=== PATIENT | male | born 1965 | race Caucasian/White ===

== ENCOUNTER 2017-01-09 10:48 | Inpatient (IN) | payer MEDICAID ==
[~2017-01-09] VITALS: Ht 177.8 cm; Wt 95.2 kg
[~2017-01-09 10:48] MED LIST: ACYC400T4 PO; ALLO300T PO; AMLO5TAB2 PO; AMOX1TAB64 PO; AZEL23SP NAS; CLON-364 PO; DOXY100C15 PO; FEBU40TA PO; FLUT16SP NAS; HYDR200T PO; HYDR50TA13 PO; INDO50CA PO; LISI-167 PO; METH-356 PO; METO50TA82 PO; MIRT30TA4 PO; OXYC10TA6 PO; PANT40TA5 PO; PRED1TAB PO; SERT50TA PO; SIMV20TA3 PO; TAMS-11 PO; ZOLP10TA5 PO
[2017-01-09] MEDS ORDERED: SODIUM CHLORIDE 0.9% 1,000 ML IV ONE ×2 (11:10→13:24)
[2017-01-09] MEDS ORDERED: MECLIZINE CHEWABLE 25 MG TAB PO ONE (11:30)
[2017-01-09] MEDS ORDERED: SODIUM CHLORIDE FLUSH 10ML SYR IVF ONE (11:30)
[2017-01-09] MEDS ORDERED: SODIUM CHLORIDE 0.9% 1,000ML IVBOLUS ONE (11:30)
[2017-01-09 12:31] LABS: BLOOD UREA NITROGEN 51 mg/dL (7-18)
[2017-01-09 12:36] LABS: ASPARTATE AMINO TRANSFERASE 16 U/L (15-37)
[2017-01-09 12:38] LABS: ACETAMINOPHEN < 2 mcg/mL (10-30); IS PT STATUS REG ER OR PRE ER? YES
[2017-01-09] MEDS ORDERED: MECLIZINE CHEWABLE 25 MG TAB ONE (12:57)
[2017-01-09] MEDS ORDERED: ONDANSETRON 2MG/ML, 2ML ONE (13:11)
[2017-01-09] MEDS ORDERED: SODIUM CHLORIDE FLUSH 10ML SYR IVF PRN (13:30)
[2017-01-09] MEDS ORDERED: CALCIUM CHLORIDE 10%, 10ML SYR IVPush ONE (13:30)
[2017-01-09] MEDS ORDERED: INSULIN REGULAR 100 UNITS/ML, 3ML VIAL IVPush ONE ×2 (13:30→17:30)
[2017-01-09] MEDS ORDERED: DEXTROSE 50%, 50ML SYRINGE IVPush ONE ×2 (13:30→17:30)
[2017-01-09] MEDS ORDERED: ONDANSETRON 2MG/ML, 2ML IVPush ONE (14:00)
[2017-01-09 14:30] VITALS: BP 110/69
[2017-01-09] MEDS ORDERED: ONDANSETRON 2MG/ML, 2ML IVPush PRN (16:00)
[2017-01-09] MEDS ORDERED: ONDANSETRON ODT 4 MG PO PRN (16:00)
[2017-01-09] MEDS ORDERED: PHARMACY MAY ADJ FOR RENAL FX MC PRN (16:00)
[2017-01-09 16:16] VITALS: BP 110/69
[2017-01-09] MEDS: SODIUM CHLORIDE 0.9% 1,000 ML IV SCH (16:28)
[2017-01-09 16:41] LABS: BLOOD UREA NITROGEN 48 mg/dL (7-18); IS PT STATUS REG ER OR PRE ER? NO
[2017-01-09] MEDS ORDERED: SODIUM POLYSTYRENE SULFONATE ORAL SUSP PO ONE (17:30)
[2017-01-09] MEDS ORDERED: CALCIUM GLUCONATE 0.46MEQ/1ML IVPush ONE (17:30)
[2017-01-09] MEDS ORDERED: SODIUM BICARB 8.4%, 50ML SYRINGE IVPush ONE (17:30)
[2017-01-09] MEDS: HEPARIN 5,000 UNITS/ML, 1ML SQ SCH (17:42)
[2017-01-09] MEDS: hydrOXyzine 50MG TABLET PO SCH ×2 (17:42→22:00)
[2017-01-09] MEDS ORDERED: CALCIUM GLUCONATE 4.6 MEQ in SODIUM CHLORIDE 0.9% 50 ML IV ONE (18:00)
[2017-01-09 20:36] LABS: IS PT STATUS REG ER OR PRE ER? NO
[2017-01-09 21:00] VITALS: BP 125/81
[2017-01-09] MEDS: MIRTAZAPINE 15 MG TABLET PO SCH (22:00)
[2017-01-09] MEDS: TAMSULOSIN 0.4 MG CAP.ER.24H PO SCH (22:00)
[2017-01-09] MEDS: METOPROLOL TARTRATE 50 MG TABLET PO SCH (22:00)
[2017-01-09] MEDS: SIMVASTATIN 20 MG TABLET PO SCH (22:00)
[2017-01-09] MEDS: HYDROXYCHLOROQUINE 200 MG TABLET PO SCH (22:00)
[2017-01-09] MEDS: METHADONE 10 MG TABLET PO SCH (22:00)
[2017-01-09] MEDS: OXYcodone IR 5MG TABLET PO PRN (22:06)
[2017-01-10] MEDS: SODIUM CHLORIDE 0.9% 1,000 ML IV SCH ×3 (00:31→19:54)
[2017-01-10] MEDS: HEPARIN 5,000 UNITS/ML, 1ML SQ SCH ×4 (00:31→23:15)
[2017-01-10 03:00] VITALS: BP 117/73
[2017-01-10 07:07] LABS: BLOOD UREA NITROGEN 44 mg/dL (7-18)
[2017-01-10 07:11] LABS: ASPARTATE AMINO TRANSFERASE 15 U/L (15-37)
[2017-01-10 07:16] VITALS: BP 123/69
[2017-01-10] MEDS: hydrOXyzine 50MG TABLET PO SCH ×3 (08:29→21:12)
[2017-01-10] MEDS: FLUTICASONE NASAL SPRAY 16GM NAS SCH (08:29)
[2017-01-10] MEDS: METOPROLOL TARTRATE 50 MG TABLET PO SCH ×2 (08:30→21:13)
[2017-01-10] MEDS: METHADONE 10 MG TABLET PO SCH ×2 (08:30→21:12)
[2017-01-10] MEDS: HYDROXYCHLOROQUINE 200 MG TABLET PO SCH ×2 (08:30→21:12)
[2017-01-10] MEDS: AMLODIPINE 5 MG TABLET PO SCH (08:30)
[2017-01-10] MEDS: FEBUXOSTAT 40 MG TABLET PO SCH (08:31)
[2017-01-10] MEDS: PANTOPROZOLE 40MG TABLET PO SCH (08:31)
[2017-01-10] MEDS: ALLOPURINOL 300 MG TABLET PO SCH (08:31)
[2017-01-10] MEDS: OXYcodone IR 5MG TABLET PO PRN ×2 (08:40→21:12)
[2017-01-10 12:48] VITALS: BP 110/67
[2017-01-10 20:00] VITALS: BP 142/81
[2017-01-10] MEDS: TAMSULOSIN 0.4 MG CAP.ER.24H PO SCH (21:12)
[2017-01-10] MEDS: ZOLPIDEM 10MG TABLET PO PRN (21:12)
[2017-01-10] MEDS: MIRTAZAPINE 15 MG TABLET PO SCH (21:13)
[2017-01-10] MEDS: SIMVASTATIN 20 MG TABLET PO SCH (21:13)
[2017-01-11 02:00] VITALS: BP 132/72
[2017-01-11] MEDS: SODIUM CHLORIDE 0.9% 1,000 ML IV SCH ×3 (02:22→16:55)
[2017-01-11 05:49] LABS: ASPARTATE AMINO TRANSFERASE 15 U/L (15-37); BLOOD UREA NITROGEN 30 mg/dL (7-18)
[2017-01-11 08:27] VITALS: BP 124/83
[2017-01-11] MEDS: FLUTICASONE NASAL SPRAY 16GM NAS SCH (09:00)
[2017-01-11] MEDS: ALLOPURINOL 300 MG TABLET PO SCH (09:00)
[2017-01-11] MEDS: OXYcodone IR 5MG TABLET PO PRN ×2 (09:50→22:35)
[2017-01-11] MEDS: PANTOPROZOLE 40MG TABLET PO SCH (09:51)
[2017-01-11] MEDS: FEBUXOSTAT 40 MG TABLET PO SCH (09:51)
[2017-01-11] MEDS: AMLODIPINE 5 MG TABLET PO SCH (09:52)
[2017-01-11] MEDS: METHADONE 10 MG TABLET PO SCH ×2 (09:52→20:21)
[2017-01-11] MEDS: METOPROLOL TARTRATE 50 MG TABLET PO SCH ×2 (09:52→20:21)
[2017-01-11] MEDS: HYDROXYCHLOROQUINE 200 MG TABLET PO SCH ×2 (09:53→20:21)
[2017-01-11] MEDS: HEPARIN 5,000 UNITS/ML, 1ML SQ SCH ×2 (09:53→16:55)
[2017-01-11] MEDS: hydrOXyzine 50MG TABLET PO SCH ×3 (09:54→20:21)
[2017-01-11 14:12] VITALS: BP 130/82
[2017-01-11 20:00] VITALS: BP 146/81
[2017-01-11] MEDS: TAMSULOSIN 0.4 MG CAP.ER.24H PO SCH (20:21)
[2017-01-11] MEDS: MIRTAZAPINE 15 MG TABLET PO SCH (20:22)
[2017-01-11] MEDS: SIMVASTATIN 20 MG TABLET PO SCH (20:22)
[2017-01-11] MEDS: ZOLPIDEM 10MG TABLET PO PRN (22:35)
[2017-01-12] MEDS: SODIUM CHLORIDE 0.9% 1,000 ML IV SCH (00:13)
[2017-01-12] MEDS: HEPARIN 5,000 UNITS/ML, 1ML SQ SCH ×3 (00:13→17:40)
[2017-01-12 00:18] VITALS: BP 134/85
[2017-01-12 06:14] LABS: BLOOD UREA NITROGEN 22 mg/dL (7-18)
[2017-01-12 06:54] VITALS: BP 149/97
[2017-01-12] MEDS: ALLOPURINOL 300 MG TABLET PO SCH (08:35)
[2017-01-12] MEDS: PANTOPROZOLE 40MG TABLET PO SCH (08:35)
[2017-01-12] MEDS: METOPROLOL TARTRATE 50 MG TABLET PO SCH ×2 (08:35→22:23)
[2017-01-12] MEDS: AMLODIPINE 5 MG TABLET PO SCH (08:35)
[2017-01-12] MEDS: FEBUXOSTAT 40 MG TABLET PO SCH (08:36)
[2017-01-12] MEDS: HYDROXYCHLOROQUINE 200 MG TABLET PO SCH ×2 (08:36→22:22)
[2017-01-12] MEDS: METHADONE 10 MG TABLET PO SCH ×2 (08:36→22:23)
[2017-01-12] MEDS: hydrOXyzine 50MG TABLET PO SCH ×3 (08:36→22:22)
[2017-01-12] MEDS: FLUTICASONE NASAL SPRAY 16GM NAS SCH (08:36)
[2017-01-12] MEDS: OXYcodone IR 5MG TABLET PO PRN ×2 (08:47→22:45)
[2017-01-12 14:15] VITALS: BP 121/80
[2017-01-12 20:00] VITALS: BP 144/89
[2017-01-12] MEDS: SIMVASTATIN 20 MG TABLET PO SCH (22:23)
[2017-01-12] MEDS: MIRTAZAPINE 15 MG TABLET PO SCH (22:23)
[2017-01-12] MEDS: TAMSULOSIN 0.4 MG CAP.ER.24H PO SCH (22:23)
[2017-01-12] MEDS: ZOLPIDEM 10MG TABLET PO PRN (22:45)
[2017-01-13] MEDS: HEPARIN 5,000 UNITS/ML, 1ML SQ SCH ×2 (00:31→08:52)
[2017-01-13 02:00] VITALS: BP 122/74
[2017-01-13 06:06] LABS: BLOOD UREA NITROGEN 18 mg/dL (7-18)
[2017-01-13 07:46] VITALS: BP 152/96
[2017-01-13] MEDS: METHADONE 10 MG TABLET PO SCH (08:51)
[2017-01-13] MEDS: hydrOXyzine 50MG TABLET PO SCH (08:51)
[2017-01-13] MEDS: PANTOPROZOLE 40MG TABLET PO SCH (08:52)
[2017-01-13] MEDS: FEBUXOSTAT 40 MG TABLET PO SCH (08:52)
[2017-01-13] MEDS: ALLOPURINOL 300 MG TABLET PO SCH (08:52)
[2017-01-13] MEDS: METOPROLOL TARTRATE 50 MG TABLET PO SCH (08:52)
[2017-01-13] MEDS: HYDROXYCHLOROQUINE 200 MG TABLET PO SCH (08:52)
[2017-01-13] MEDS: AMLODIPINE 5 MG TABLET PO SCH (08:52)
[2017-01-13] MEDS: FLUTICASONE NASAL SPRAY 16GM NAS SCH (09:00)
[2017-01-13] MEDS: OXYcodone IR 5MG TABLET PO PRN (09:07)
== END 2017-01-13 13:13 | disposition home or self-care (01) | DRG 683 ==
LOC: ED 11:14 → EDIP 13:25 → 4EST 14:37 → DCLOUNGE 01-13 12:55
PROVIDERS: ADMIT Internal Medicine; ATTEND Internal Medicine
DX: N17.0 Acute kidney failure with tubular necrosis (principal); E87.1 Hypo-osmolality and hyponatremia; E87.2 Acidosis; N40.1 Benign prostatic hyperplasia with lower urinary tract symptoms; I10 Essential (primary) hypertension; G47.30 Sleep apnea, unspecified; E87.5 Hyperkalemia; F10.129 Alcohol abuse with intoxication, unspecified; R39.11 Hesitancy of micturition; K70.30 Alcoholic cirrhosis of liver without ascites; E78.5 Hyperlipidemia, unspecified; M10.9 Gout, unspecified; M06.9 Rheumatoid arthritis, unspecified; D50.9 Iron deficiency anemia, unspecified; K72.90 Hepatic failure, unspecified without coma; G89.29 Other chronic pain; Z82.49 Family history of ischemic heart disease and other diseases of the circulatory system; Z80.9 Family history of malignant neoplasm, unspecified; Z79.899 Other long term (current) drug therapy; Z79.891 Long term (current) use of opiate analgesic
CPT/HCPCS: 36415; 70450; 71010; 76770; 80048; 80053; 80061; 80307; 80329; 81003; 82140; 82436; 82570; 82962; 83605; 83735; 84100; 84132; 84133; 84300; 84439; 84443; 84484; 85025; 85610; 85730; 87040; 93005; 93306; 93880; 96361; 96374; J0610; J1644; J1815; J2405; Q0162; G0480; J7030

== ENCOUNTER 2017-03-09 06:06 | Emergency (ER) | payer MEDICAID ==
[~2017-03-09] VITALS: Ht 175.3 cm; Wt 101.7 kg
[2017-03-09 06:07] VITALS: BP 162/96
== END 2017-03-09 06:56 | disposition home or self-care (01) ==
LOC: ED 06:36
DX: K13.0 Diseases of lips (principal); E78.00 Pure hypercholesterolemia, unspecified; I10 Essential (primary) hypertension
CPT/HCPCS: 99283

== ENCOUNTER → 2017-05-05 | Outpatient (CLI) | payer MEDICAID | END | disposition home or self-care (01) | LOC: CFH 10:42 | PROVIDERS: ATTEND Physician Assistant | DX: K70.30 Alcoholic cirrhosis of liver without ascites (principal); K76.0 Fatty (change of) liver, not elsewhere classified | CPT/HCPCS: 76705 ==

== ENCOUNTER → 2017-09-07 | Outpatient (CLI) | payer MEDICAID ==
[~2017-09-07] MED LIST changes: -HYDR200T PO; +HYDR200T72 PO
== END ==
LOC: RAD 08:55
PROVIDERS: ATTEND Internal Medicine Rheumatology
DX: M19.071 Primary osteoarthritis, right ankle and foot (principal); M10.9 Gout, unspecified; M06.9 Rheumatoid arthritis, unspecified; M25.872 Other specified joint disorders, left ankle and foot
CPT/HCPCS: 77077

== ENCOUNTER → 2017-11-09 | Outpatient (CLI) | payer MEDICAID | LOC: CFH 07:50 | PROVIDERS: ATTEND Physician Assistant | DX: K76.0 Fatty (change of) liver, not elsewhere classified (principal); K70.30 Alcoholic cirrhosis of liver without ascites | CPT/HCPCS: 76705 ==

== ENCOUNTER 2017-11-23 06:13 | Observation (INO) | payer MEDICAID ==
[~2017-11-23] VITALS: Ht 175.3 cm; Wt 101.3 kg
[2017-11-23 07:08] VITALS: BP 119/80
[2017-11-23] MEDS ORDERED: LACTATED RINGERS 1,000 ML IV SCH (07:15)
[2017-11-23] MEDS ORDERED: ACYC-114 PO ×2 (07:20)
[2017-11-23] MEDS ORDERED: GABA-826 PO (07:20)
[2017-11-23] MEDS ORDERED: EPINEPHRINE 1 MG/ML, 1ML ONE (07:23)
[2017-11-23] MEDS ORDERED: COCAINE TOPICAL SOLN 4%, 4ML ONE (07:23)
[2017-11-23] MEDS ORDERED: OXYMETAZOLINE NASAL SPRAY 0.05%, 15ML ONE (07:23)
[2017-11-23] MEDS ORDERED: BACITRACIN OINT 500U/GM, 15 GM ONE (07:23)
[2017-11-23] MEDS ORDERED: LIDOCAINE/PF 1%, 30ML ONE (07:23)
[2017-11-23] MEDS ORDERED: FENTANYL PF 250 MCG/5ML ONE (07:40)
[2017-11-23] MEDS ORDERED: MIDAZOLAM 1 MG/ML, 2ML ONE (07:40)
[2017-11-23] MEDS ORDERED: KETAMINE 10 MG/ML, 20ML ONE (07:57)
[2017-11-23] MEDS ORDERED: ONDANSETRON 2MG/ML, 2ML ONE (08:08)
[2017-11-23] MEDS ORDERED: CEFAZOLIN 1,000 MG ONE (08:08)
[2017-11-23] MEDS ORDERED: DEXAMETHASONE 4 MG/ML, 1ML ONE (08:08)
[2017-11-23] MEDS ORDERED: PROPOFOL 10 MG/ML, 20ML ONE (08:08)
[2017-11-23] MEDS ORDERED: ROCURONIUM 10 MG/ML,10ML ONE (08:08)
[2017-11-23] MEDS ORDERED: SUCCINYLCHOLINE 20 MG/ML, 10ML ONE (08:08)
[2017-11-23] MEDS ORDERED: HYDROcodone/APAP 7.5-325MG/15ML UDC PO PRN (08:30)
[2017-11-23] MEDS ORDERED: HYDROmorphone 1 MG/ML, 1ML IV PRN (08:30)
[2017-11-23] MEDS ORDERED: ACETAMINOPHEN 325 MG TABLET PO PRN (08:30)
[2017-11-23] MEDS ORDERED: FENTANYL PF 100 MCG/2ML IV PRN (08:30)
[2017-11-23] MEDS ORDERED: PROMETHAZINE 25 MG/ML, 1ML IV PRN (08:30)
[2017-11-23] MEDS ORDERED: MORPHINE SULFATE 4 MG/ML, 1ML IVPush PRN ×2 (08:30→11:30)
[2017-11-23] MEDS ORDERED: OXYcodone 5 MG/5 ML ORAL.SOL UDC PO PRN (08:30)
[2017-11-23] MEDS ORDERED: ONDANSETRON ODT 8 MG PO PRN (08:30)
[2017-11-23] MEDS ORDERED: OXYcodone 5 MG/5 ML ORAL.SOL UDC ONE (10:28)
[2017-11-23 13:08] VITALS: BP 119/78
[2017-11-23] MEDS ORDERED: ZOLPIDEM 10MG TABLET PO PRN (13:30)
[2017-11-23] MEDS: hydrOXyzine 50MG TABLET PO SCH ×2 (14:35→19:48)
[2017-11-23] MEDS: IBUPROFEN 600 MG TABLET PO SCH ×2 (16:00→19:48)
[2017-11-23] MEDS: GABAPENTIN 100 MG CAPSULE PO SCH ×2 (16:21→19:48)
[2017-11-23] MEDS: METOPROLOL TARTRATE 50 MG TABLET PO SCH (17:08)
[2017-11-23] MEDS: OXYcodone 5 MG/5 ML ORAL.SOL UDC PO PRN (19:47)
[2017-11-23] MEDS: METHADONE 10 MG TABLET PO SCH (19:47)
[2017-11-23 20:00] VITALS: BP 118/71
[2017-11-23] MEDS ORDERED: SIMVASTATIN 20 MG TABLET PO SCH (21:00)
[2017-11-23] MEDS ORDERED: TAMSULOSIN 0.4 MG CAP.ER.24H PO SCH (21:00)
[2017-11-23] MEDS ORDERED: MIRTAZAPINE 15 MG TABLET PO SCH (21:00)
[2017-11-24] MEDS: OXYcodone 5 MG/5 ML ORAL.SOL UDC PO PRN (01:53)
[2017-11-24 02:00] VITALS: BP 119/77
[2017-11-24 04:00] VITALS: BP 119/65
[2017-11-24 05:55] VITALS: BP 118/73
[2017-11-24] MEDS: IBUPROFEN 600 MG TABLET PO SCH ×2 (05:56→11:00)
[2017-11-24] MEDS: METOPROLOL TARTRATE 50 MG TABLET PO SCH (05:57)
[2017-11-24] MEDS ORDERED: PANTOPROZOLE 40MG TABLET PO SCH (07:30)
[2017-11-24] MEDS: METHADONE 10 MG TABLET PO SCH (07:50)
[2017-11-24] MEDS: GABAPENTIN 100 MG CAPSULE PO SCH (07:50)
[2017-11-24 07:56] VITALS: BP 105/68
[2017-11-24] MEDS ORDERED: ALLOPURINOL 300 MG TABLET PO SCH (09:00)
[2017-11-24] MEDS ORDERED: AMLODIPINE 5 MG TABLET PO SCH (09:00)
[2017-11-24] MEDS ORDERED: FEBUXOSTAT 40 MG TABLET PO SCH (09:00)
[2017-11-24] MEDS: hydrOXyzine 50MG TABLET PO SCH (09:40)
[2017-11-24 11:02] VITALS: BP 119/78
[2017-11-24] MEDS ORDERED: HYDR-882 PO (11:32)
[2017-11-24] MEDS ORDERED: CEPH-368 PO (11:32)
== END 2017-11-24 11:51 | disposition home or self-care (01) ==
LOC: OUT 06:13 → 4NOR 11:20 → OUT 21:24 → 4NOR 21:25 → DCLOUNGE 11-24 11:26
PROVIDERS: ADMIT Otolaryngology; ATTEND Otolaryngology
DX: J34.2 Deviated nasal septum (principal); J34.3 Hypertrophy of nasal turbinates
CPT/HCPCS: 30140; 30630; G0378; J0171; J0330; J0690; J1100; J2250; J2405; J2704; J3010; J3490; J7120